=== PATIENT | female | born 1990 | race Caucasian/White ===

== ENCOUNTER 2017-01-20 11:46 | Inpatient (IN) | payer OTHER ==
[2017-01-20] MEDS ORDERED: morphine CARPU-JECT 4 MG/1 ML DISP.SYRIN IVPUSH ONE (12:47)
[2017-01-20] MEDS ORDERED: SODIUM CHLORIDE 1,000 ML IV STA (12:47)
[2017-01-20] MEDS ORDERED: ONDANSETRON 4 MG/2 ML VIAL IVPUSH ONE (12:47)
[2017-01-20] MEDS ORDERED: ONDANSETRON 4 MG/2 ML VIAL ONE (12:52)
[2017-01-20] MEDS ORDERED: morphine CARPU-JECT 4 MG/1 ML DISP.SYRIN ONE (12:52)
--- NOTE | 2017-01-20 12:53 | PDOC ---
Attending Attestation - Resident Resident Name: Casper Stewart - ED Attending Attestation I have performed the following: I have examined & evaluated the patient, The case was reviewed & discussed with the resident, I agree w/resident's findings & plan, Exceptions are as noted - HPI HPI: 01/20/17 12:48 this is a 26 yo F with a history of prior cholecystectomy Pt presents to the ER with a complaint of 2 days of severe RUQ pain and nausea Pt denies fevers or chills Pt states pain is sharp Located in the RUQ, radiating to the back Pt has been unable to eat as a result of her pain Pain is constant and severe Last meal: soup last night 9:30 pm Last BM: yesterday ("small amount") Passing flatus 01/20/17 12:50 01/20/17 12:53 01/20/17 12:54 - Physicial Exam PE: 01/20/17 12:52 On examination: Pt is bent over her bed, swaying in pain Pt has point tenderness of the ruq No CVA tenderness No lower abdominal pain or tenderness 01/20/17 12:53 01/20/17 12:54 - Medical Decision Making 01/20/17 12:55 Will do labs will do US Will do CT Will give IVF Will give Zofran and Morphine for pain Will re assess 01/20/17 14:24 Laboratory Tests 10/01/15 10/01/15 01/20/17 13:40 13:40 12:50 WBC 15.1 H 9.7 D Hgb 12.6 D 13.5 Hct 39.4 D 41.0 Plt Count 265 D 210 D Sodium Potassium Chloride Carbon Dioxide BUN 9 Creatinine 0.7 Random Glucose Total Bilirubin 0.5 AST 14 L ALT 21 Alkaline Phosphatase 74 Serum , Qual 01/20/17 01/20/17 12:50 12:50 WBC Hgb Hct Plt Count Sodium 138 Potassium 4.2 Chloride 103 Carbon Dioxide 30 BUN 6 L D Creatinine 0.8 Random Glucose 108 H Total Bilirubin 4.7 H D AST 497 H D ALT 862 H D Alkaline Phosphatase 163 H D Serum , Qual Negative 01/20/17 14:26 U/S: hepatomegaly CBD upper limit of normal Will contact surgery 01/20/17 15:31 Being sent to MRI Discharge Disposition - Diagnosis Abnormal LFTs - Discharge Dispostion Condition at time of disposition: Fair Last Admission D/C Date: 10/03/15 Admit: Yes - Referrals Referrals: Raymundo Ndiaye MD [Primary Care Provider] - - Patient Instructions - Post Discharge Activity
[2017-01-20 13:01] LABS: BASOPHIL 0.7 % (0-2.0); EOSINOPHIL 5.9 % (0-4.5); MCH 25.3 pg (25.7-33.7); MCHC 32.9 g/dl (32.0-36.0); MEAN CELL VOLUME 76.8 fl (80-96); MEAN PLT VOLUME 7.8 fl (7.5-11.1); NEUTROPHILS 64.1 % (42.8-82.8); PLATELET COUNT 210 K/MM3 (134-434); RDW 14.3 % (11.6-15.6); WHITE BLOOD COUNT 9.7 K/mm3 (4.0-10.0)
[2017-01-20 13:23] LABS: ALBUMIN 3.7 g/dl (3.4-5.0); AMYLASE 32 U/L (25-115); ANION GAP 5 (8-16); CALCIUM 8.9 mg/dL (8.5-10.1); CO2 30 mmol/L (21-32); CREATININE 0.8 mg/dL (0.55-1.02); GLUCOSE,RANDOM 108 mg/dL (74-106)
[2017-01-20 13:25] LABS: ALK PHOS 163 U/L (45-117); BILIRUBIN,TOTAL 4.7 mg/dL (0.2-1.0); TOT PROT 7.9 g/dl (6.4-8.2)
[2017-01-20 13:29] LABS: SGOT/AST 497 U/L (15-37); SGPT/ALT 862 U/L (12-78)
--- NOTE | 2017-01-20 13:45 | PDOC ---
History of Present Illness - General Chief Complaint: Pain Stated Complaint: ABD PAIN Time Seen by Provider: 01/20/17 12:06 - History of Present Illness Initial Comments: 01/20/17 13:39 Patient is a 26 year old female with a history of a cholecystectomy in 09/2015 who presents with a 3 day history of abdominal pain. Patient reports sudden onset of 8/10 sharp abdominal pain worse with inspiration in the epigastric region 2 days ago. She reports calling EMS and the pain resolved en route to the ED. Upon arrival to the ED, she opted to not be seen and went home without evaluation. Patient then reports an episode of emesis later that evening. She states that she was pain free 1 day ago and then experienced 8/10 pain right sided back pain that she describes as "moving" to the URQ when she moves prompting her visit to the ED today. She denies any fevers, chills, or changes in bowel movements at home. She denies dysuria or burning on urination. She states that she has an IUD implanted and has not experienced any changes in her menstruation. Past History - Past Medical History Allergies/Adverse Reactions: Allergies Allergy/AdvReac Type Severity Reaction Status Date / Time No Known Allergies Allergy Verified 01/20/17 11:50 Home Medications: Ambulatory Orders NK [No Known Home Medication] 01/20/17 Anemia: No Asthma: No Cancer: No Cardiac Disorders: No COPD: No Diabetes: No HTN: No Seizures: No Thyroid Disease: No Other medical history: obesity - Surgical History Cholecystectomy: Yes - Psycho/Social/Smoking Cessation Hx Suicidal Ideation: No Smoking History: Never smoked Have you smoked in the past 12 months: Yes Number of Cigarettes Smoked Daily: 0 Information on smoking cessation initiated: No Hx Alcohol Use: No Drug/Substance Use Hx: No Substance Use Type: None Hx Substance Use Treatment: No Review of Systems - Review of Systems Constitutional: No: Chills, Fever, Night Sweats, Weakness HEENTM: No: Nose Congestion, Throat Pain, Difficulty Swallowing Respiratory: No: Cough, Shortness of Breath, Wheezing Cardiac (ROS): No: Chest Pain, Palpitations, Chest Tightness ABD/GI: Yes: Constipated, Nausea, Poor Appetite, Vomiting. No: Diarrhea, Rectal Bleeding, Tarry Stools : No: Burning, Dysuria, Discharge, Hematuria Musculoskeletal: Yes: Back Pain Integumentary: No: Rash Neurological: No: Headache, Numbness, Weakness *Physical Exam - Vital Signs Last Vital Signs Temp Pulse Resp BP Pulse Ox 98.6 F 65 18 113/74 98 01/20/17 11:47 01/20/17 11:47 01/20/17 11:47 01/20/17 11:47 01/20/17 11:47 - Physical Exam General Appearance: Yes: Nourished, Moderate Distress HEENT: positive: Normal Voice. negative: Tonsillar Exudate, Nasal Congestion Respiratory/Chest: positive: Lungs Clear, Normal Breath Sounds. negative: Rales , Rhonchi, Wheezing Cardiovascular: positive: Regular Rhythm, Regular Rate. negative: Murmur, Gallop/S3, Gallop/S4 Gastrointestinal/Abdominal: positive: Normal Bowel Sounds, Other (Point tenderness to deep palpation in the URQ.). negative: Guarding, Rebound Musculoskeletal: negative: CVA Tenderness Extremity: positive: Normal Capillary Refill Integumentary: positive: Normal Color, Dry, Warm Neurologic: positive: Fully Oriented, Alert, Normal Mood/Affect ED Treatment Course - LABORATORY CBC & Chemistry Diagram: 01/20/17 12:50 01/20/17 12:50 - ADDITIONAL ORDERS Additional order review: Laboratory Results 01/20/17 01/20/17 12:50 12:50 Sodium 138 Potassium 4.2 Chloride 103 Carbon Dioxide 30 Anion Gap 5 L BUN 6 L D Creatinine 0.8 Creat Clearance w eGFR > 60 Random Glucose 108 H Calcium 8.9 Total Bilirubin 4.7 H D AST 497 H D ALT 862 H D Alkaline Phosphatase 163 H D Total Protein 7.9 Albumin 3.7 Total Amylase 32 D Lipase 109 Serum , Qual Negative 01/20/17 12:50 RBC 5.34 H MCV 76.8 L MCHC 32.9 RDW 14.3 MPV 7.8 Neutrophils % 64.1 D Lymphocytes % 22.5 D Monocytes % 6.8 D Eosinophils % 5.9 H D Basophils % 0.7 D - RADIOLOGY Radiograph Interpretation: 01/20/17 14:20 Abdominal US: Impression reported by Dr. Giles: Hepatomegaly with a slightly coarse echotexture that may be on the basis of mild fatty infiltration. Status post cholecystectomy. Top limits of normal common bile duct for a post cholecystectomy patient without evidence of intraluminal stones on the submitted images. Correlate clinically for further evaluation and follow-up. If clinically indicated an MRCP could be obtained. - Medications Given in the ED: ED Medications Discontinued Medications Generic Name Dose Route Start Last Admin Trade Name Edita PRN Reason Stop Dose Admin Morphine Sulfate 4 mg 01/20/17 12:47 01/20/17 12:59 Morphine Injection - IVPUSH 01/20/17 12:48 4 mg ONCE ONE Administration Ondansetron HCl 4 mg 01/20/17 12:47 01/20/17 12:59 Zofran Injection IVPUSH 01/20/17 12:48 4 mg ONCE ONE Administration Medical Decision Making - Medical Decision Making 01/20/17 13:53 Patient is a 26 year old female with a history of a cholecystectomy in 09/2015 who presents with a 2 day history of abdominal pain. Given the patient's physical exam and described pain of epigastric/RUQ sharp pain with radiation to the back, pancreatitis is on the differential as well as a hernia, or a retained gall stone, or liver pathology. We will obtain lipase and amylase to rule out pancreatitis as well as a BMP to evaluate for electrolyte abnormalities and liver enzymes for other pathology. We will obtain an US as well to look for any retained stones. We will obtain a urine test as well to rule out related pathology. We will treat her pain as appropriate. 01/20/17 14:40 Patient's labs are notable for an elevated biliruben to 4.7, elevated AST to 497 , elevated ALT 862 and an Alk Phos elevated to 163. Patient's US was read as hepatomegaly. Given the patient's abnormal lab and US findings, we consulted Dr. Liu with GI and Dr. Yeung with surgery for evaluation of the patient. Both recommended MRCP for further evaluation of the bile duct system given her elevated liver enzymes and hepatomegaly. Patient will be admitted for further work-up. *DC/Admit/Observation/Transfer Diagnosis at time of Disposition: Abnormal LFTs - Discharge Dispostion Condition at time of disposition: Fair - Referrals - Attestations Physician Attestion: 01/20/17 14:11 I, Dr. Casper Stewart, attest that this document has been prepared under my direction and personally reviewed by me in its entirety. I further attest, that it accurately reflects all work, treatment, procedures and medical decision -making performed by me.
--- NOTE | 2017-01-20 15:42 | CON.GI ---
Consult Consult Specialty:: GI Referred by:: Hospitalist Reason for Consultation:: abdominal pain - History of Present Illness Chief Complaint: abdominal pain History of Present Illness: 26 F with no significant PMH, PSH significant for Lap samina last year (Jayy Urias ) now with 3 days of progressive epigastric/RUQ pain and nausea which became 10/ 10 pain earlier prompting admission. On admit, t bili was 4.7 with increased transaminases. U/S with dilated CBD (1 cm) Just sent for MRI/MRCP - History Source History Provided By: Patient Limitations to Obtaining History: No Limitations - Past Medical History ...LMP: 10/01/15 Infectious Disease: Yes: Other (hx hsv antibody,denies ever having out break) - Alcohol/Substance Use Hx Alcohol Use: No History of Substance Use: reports: None - Smoking History Smoking history: Never smoked Have you smoked in the past 12 months: Yes Aproximately how many cigarettes per day: 0 - Social History History of Recent Travel: No Home Medications - Allergies Allergies/Adverse Reactions: Allergies Allergy/AdvReac Type Severity Reaction Status Date / Time No Known Allergies Allergy Verified 01/20/17 11:50 - Home Medications Home Medications: Ambulatory Orders NK [No Known Home Medication] 01/20/17 Physical Exam-GI Vital Signs: Vital Signs Temperature 98.6 F 01/20/17 11:47 Pulse Rate 65 01/20/17 11:47 Respiratory Rate 18 01/20/17 11:47 Blood Pressure 113/74 01/20/17 11:47 O2 Sat by Pulse Oximetry (%) 98 01/20/17 11:47 Constitutional: Yes: Well Nourished, Obese Neck: Yes: Supple Cardiovascular: Yes: Regular Rate and Rhythm Respiratory: Yes: CTA Bilaterally Gastrointestinal Inspection: Yes: WNL ...Auscultate: Yes: Normoactive Bowel Sounds ...Palpate: Yes: Soft. No: Tenderness Labs: CBC, BMP 01/20/17 12:50 01/20/17 12:50 Hepatic Panel Total Bilirubin 4.7 mg/dL (0.2-1.0) H D 01/20/17 12:50 Direct Bilirubin 3.5 mg/dL (0.0-0.2) H 01/20/17 12:50 AST 497 U/L (15-37) H D 01/20/17 12:50 ALT 862 U/L (12-78) H D 01/20/17 12:50 Alkaline Phosphatase 163 U/L (45-117) H D 01/20/17 12:50 Albumin 3.7 g/dl (3.4-5.0) 01/20/17 12:50 Imaging - Results Ultrasound: Report Reviewed Assessment/Plan 26 F s/p samina last year now back with possible CBD obstruction secondary to retained stone. Currently less pain. Rec: MRCP (currently being done) Further mgmt pending results Surgery has been notified May need ERCP unless stone has passed. IVF, IV AbRx
[2017-01-20 15:46] LABS: BILIRUBIN,DIRECT 3.5 mg/dL (0.0-0.2)
[2017-01-20 16:18] LABS: INR 1.12 (0.82-1.09); PROTHROMBIN TIME (PATIENT) 12.3 SEC (9.98-11.88)
[2017-01-20 17:01] VITALS: BMI 38.0
--- NOTE | 2017-01-20 17:22 | HP ---
CHIEF COMPLAINT: RUQ pain PCP: None currently HISTORY OF PRESENT ILLNESS: 26 year old F with PMH of cholecystectomy in 09/2015 presenting with RUQ pain. She states 2 days prior to admission she was at the park having a y[place]enia when she suddenly began feeling nauseous. She had some crackers and started to feel better so she had another drink after an hour. She began having severe pain in her epigastrium. [facility] by [facility]. By the time she arrived, her pain had subsided. Patient states she was fed and decided to leave because the wait time was [address] long[address] the [address] home, patient had an episode of emesis. The patient reports that 1 day prior to admission she was asymptomatic. This morning around 0530 patient woke up feeling fine. She had some apple juice and then around 0830 she began feeling pain in her epigastrium and RUQ. The pain has been intermittent and radiating to her back. She states the pain is alleviated by hot showers. Nothing makes the pain worse. She states it was an 8/10 upon arrival to the ED but has is now a 4/10 after she was given morphine. Patient endorses episodes of nausea and vomiting. Denies any fever or chills. Her last meal was 2130 last night and her last BM was yesterday. Patient also complaining of a vaginal yeast infection. Recent Travel: None PAST MEDICAL HISTORY: None PAST SURGICAL HISTORY: Cholecystectomy 09/2015 Social History: Smoking: None Alcohol: Socially (1-2 beers every few weeks) Drugs: None Family History: Mother-HTN Allergies: NKDA No Known Allergies Allergy (Verified 01/20/17 11:50) HOME MEDICATIONS: Home Medications Medication Instructions Recorded NK [No Known Home Medication] 01/20/17 REVIEW OF SYSTEMS CONSTITUTIONAL: Absent: fever, chills, diaphoresis, generalized weakness, malaise, weight change Present: Loss of Appetite HEENT: Absent: rhinorrhea, nasal congestion, throat pain, throat swelling, difficulty swallowing, mouth swelling, ear pain, eye pain, visual changes CARDIOVASCULAR: Absent: chest pain, syncope, palpitations, irregular heart rate, lightheadedness , peripheral edema RESPIRATORY: Absent: cough, shortness of breath, dyspnea with exertion, orthopnea, wheezing, stridor, hemoptysis GASTROINTESTINAL: Absent: abdominal distension, diarrhea, constipation, melena, hematochezia Present: abdominal pain, nausea, vomiting GENITOURINARY: Absent: dysuria, frequency, urgency, hesitancy, hematuria, flank pain, genital pain MUSCULOSKELETAL: Absent: myalgia, arthralgia, joint swelling, back pain, neck pain SKIN: Absent: rash, itching, pallor HEMATOLOGIC/IMMUNOLOGIC: Absent: easy bleeding, easy bruising, lymphadenopathy, frequent infections ENDOCRINE: Absent: unexplained weight gain, unexplained weight loss, heat intolerance, cold intolerance NEUROLOGIC: Absent: headache, focal weakness or paresthesias, dizziness, unsteady gait, seizure, mental status changes, bladder or bowel incontinence PSYCHIATRIC: Absent: anxiety, depression, suicidal or homicidal ideation, hallucinations. PHYSICAL EXAMINATION Vital Signs - 24 hr 01/20/17 01/20/17 16:08 16:48 Temperature 98.5 F 98.6 F Pulse Rate 90 Pulse Rate [ 72 Left Radial] Respiratory 18 18 Rate Blood Pressure 116/72 Blood Pressure 128/89 [Right Arm] O2 Sat by Pulse 98 98 Oximetry (%) GENERAL: Awake, alert, and fully oriented, in no acute distress. HEAD: Normal with no signs of trauma. EYES: extraocular movements intact, sclera anicteric, conjunctiva clear. EARS, NOSE, THROAT: oropharynx clear without exudates. Moist mucous membranes. NECK: Normal range of motion, supple without lymphadenopathy, JVD, or masses. LUNGS: Breath sounds equal, clear to auscultation bilaterally. Poor respiratory effort due to pain. No wheezes, and no crackles. No accessory muscle use. HEART: Regular rate and rhythm, normal S1 and S2 without murmur, rub or gallop. ABDOMEN: Soft, RUQ tenderness, not distended, normoactive bowel sounds, no guarding, no rebound, no masses. MUSCULOSKELETAL: Normal range of motion at all joints. No bony deformities or tenderness. No CVA tenderness. NEUROLOGICAL: Normal speech. Normal gait. PSYCHIATRIC: Cooperative. Good eye contact. Appropriate mood and affect. Laboratory Results - last 24 hr 01/20/17 01/20/17 01/20/17 12:50 12:50 12:50 WBC 9.7 D RBC 5.34 H Hgb 13.5 Hct 41.0 MCV 76.8 L MCHC 32.9 RDW 14.3 Plt Count 210 D MPV 7.8 Neutrophils % 64.1 D Lymphocytes % 22.5 D Monocytes % 6.8 D Eosinophils % 5.9 H D Basophils % 0.7 D INR Sodium 138 Potassium 4.2 Chloride 103 Carbon Dioxide 30 Anion Gap 5 L BUN 6 L D Creatinine 0.8 Creat Clearance w eGFR > 60 Random Glucose 108 H Calcium 8.9 Total Bilirubin 4.7 H D Direct Bilirubin 3.5 H AST 497 H D ALT 862 H D Alkaline Phosphatase 163 H D Total Protein 7.9 Albumin 3.7 Total Amylase 32 D Lipase 109 Serum , Qual Negative 01/20/17 16:00 WBC RBC Hgb Hct MCV MCHC RDW Plt Count MPV Neutrophils % Lymphocytes % Monocytes % Eosinophils % Basophils % INR 1.12 Sodium Potassium Chloride Carbon Dioxide Anion Gap BUN Creatinine Creat Clearance w eGFR Random Glucose Calcium Total Bilirubin Direct Bilirubin AST ALT Alkaline Phosphatase Total Protein Albumin Total Amylase Lipase Serum , Qual Imaging: U/S- hepatomegaly with a CBD diameter of 1 cm MRCP report pending ASSESSMENT/PLAN: 26 y.o. F with a PMH of cholecystectomy in 09/2015 presenting with a 2 day history of RUQ abdominal pain. 1. RUQ abdominal pain- biliary colic -cholecystectomy performed in 09/2015 -U/S shows hepatomegaly with a CBD diameter of 1 cm -MRCP results pending Plan: -Morphine 2 mg Q4H PRN for pain control -IVF NS @ 125 cc/hr -Unasyn 3g Q6H -F/u with GI -ERCP most likely tomorrow 2. Direct bilirubinemia -Likely due to obstructing stone in CBD -T bili- 4.7 -D bili- 3.5 Plan: -ERCP most likely tomorrow 3. Transaminitis -ALT-862 -AST-497 -Alk Phos- 163 -Likely due to obstructing stone in CBD Plan: -F/u with GI regarding ERCP 4. Vaginal Candidiasis Plan: -1 dose of fluconazole 150 mg PO was given 5. FEN/GI -Currently waiting on time for ERCP Plan: -Clear liquid diet currently -NPO after midnight 6. PPX Plan: Heparin 5000 units Q8H Visit type - Emergency Visit Emergency Visit: Yes ED Registration Date: 01/20/17 Care time: The patient presented to the Emergency Department on the above date and was hospitalized for further evaluation of their emergent condition. - New Patient This patient is new to me today: Yes Date on this admission: 01/20/17 - Critical Care Critical Care patient: No
--- NOTE | 2017-01-20 17:58 | PN ---
Teaching Attending Note Name of Resident: Jethro Vela ATTENDING PHYSICIAN STATEMENT I saw and evaluated the patient. I reviewed the resident's note and discussed the case with the resident. I agree with the resident's findings and plan as documented. SUBJECTIVE:26yo F c/o RUQ pain x3days. assoc with vomiting which prompted her to the ER. went to [facility] on thursday with this same pain but improved by arrival to the ER and there was a long wait so left prior to being evaluated. denies CP, SOB, fever, chills, C/D s/p laprascopic cholecystectomy on 10/03/15 without complication. OBJECTIVE: Last Vital Signs Temp Pulse Resp BP Pulse Ox 98.6 F 90 18 116/72 98 01/20/17 16:48 01/20/17 16:48 01/20/17 16:48 01/20/17 16:48 01/20/17 16:55 General NAD CV S1 S2 RRR no murmur/riub/gallop Lungs CTA B/L no wheezing/rales/rhonchi Abdomen soft +RUQ tenderness +juarez sign, obese Extremities no pedal edema ASSESSMENT AND PLAN: 26yo F with pMH acute cholecysitits s/p laprascopic cholecystectomy presented with RUQ pain and vomiting 1. Acute biliary colic- medicine admission. concern for cholodocholithasis vs acute cholangitis vs sphincter of oddi dysfucntion. slightly dilated CBD on u/s however pt is s/p cholecystectomy. MRCP done and awaiting results. will likely require ERCP for stone removal if + vs sphincterotomy. start Unasyn 3g, IVF, NPO. antiemetic and pain control. will trend transaminitis
[2017-01-20] MEDS ORDERED: FLUCONAZOLE 50 MG TABLET PO ONE (18:27)
[2017-01-20] MEDS: morphine CARPU-JECT 2 MG/1 ML DISP.SYRIN IVPUSH PRN ×2 (18:45→22:34)
--- NOTE | 2017-01-20 18:59 | HP ---
Admitting History and Physical - Admission Chief Complaint: ABD pain History of Present Illness: 26F with no PMH s/p cholecystectomy presents to the ED with 3 day history of ABD pain and one episode of vomiting. Found to have elevated LFTs and bilirubin. 3mm obstructing CBD stone - Past Medical History ...LMP: 01/06/17 ...: No Heme/Onc: Yes: Sickle Cell Trait Infectious Disease: Yes: Other (hx hsv antibody,denies ever having out break) Additional Past Medical History: no PMH - Past Surgical History Past Surgical History: Yes: Cholecystectomy - Smoking History Smoking history: Never smoked Have you smoked in the past 12 months: Yes Aproximately how many cigarettes per day: 0 - Alcohol/Substance Use Hx Alcohol Use: No History of Substance Use: reports: None - Social History History of Recent Travel: No Home Medications - Allergies Allergies/Adverse Reactions: Allergies Allergy/AdvReac Type Severity Reaction Status Date / Time No Known Allergies Allergy Verified 01/20/17 11:50 - Home Medications Home Medications: Ambulatory Orders NK [No Known Home Medication] 01/20/17 Physical Examination Vital Signs: Vital Signs Temperature 98.6 F 01/20/17 16:48 Pulse Rate 90 01/20/17 16:48 Respiratory Rate 18 01/20/17 16:48 Blood Pressure 116/72 01/20/17 16:48 O2 Sat by Pulse Oximetry (%) 98 01/20/17 16:55 Findings/Remarks: AAOx3 NAD RRR S1 S2 CTAB Soft TTP in RUQ Imaging - Results Ultrasound: Report Reviewed, Image Reviewed MRI: Report Reviewed, Image Reviewed Assessment/Plan 26F with no POMH s/p cheolcystectomy admitted for obstructing ABD stone and hyperbilirubinemia admit to med surg Sx Consult GI consult ERCP in AM NPO IVF Abx Discussed with attending. full H&P by medical team Visit type - Emergency Visit Emergency Visit: Yes ED Registration Date: 01/20/17 Care time: The patient presented to the Emergency Department on the above date and was hospitalized for further evaluation of their emergent condition. - New Patient This patient is new to me today: Yes Date on this admission: 01/20/17 - Critical Care Critical Care patient: No
[2017-01-20] MEDS ORDERED: FLUCONAZOLE 150 MG TABLET PO ONE (19:00)
[2017-01-20] MEDS: AMPICILLIN NA/SULBACTAM NA 3 GM in SODIUM CHLORIDE 100 ML IVPB SCH ×2 (20:51→21:29)
[2017-01-20] MEDS: SODIUM CHLORIDE 1,000 ML IV SCH (20:53)
--- NOTE | 2017-01-20 21:00 | CONSULT ---
Consult Consult Specialty:: General Surgery Referred by:: Jacki Quick Reason for Consultation:: h/o lap samina by Dr. Urias last year with RUQ pain and elevated LFTs - History of Present Illness Chief Complaint: RUQ pain History of Present Illness: 26yo generally healthy F s/p lap samina 10/[address] Urias began experiencing nausea Thursday after drinking part of a yessenia. She made herself throw up, but it didn't make her feel better. She had a beer, but then had epigastric pain , and went by ambulance to [facility], where she waited several hours to be seen, did not end up having any tests, but was feeling better by the time she got there. She had a sandwich and was discharged, but threw up on the way home. Yesterday, she did not have any pain, and had fish soup last night. Today , she had RUQ pain both in front and in back, which did not go away, but was severe, and she called her father to bring her to the ER. She has had normal BMs , but urine has been orange the last couple days. No f/c. In the ER, LFTs were significantly elevated with bilirubin of 4.7 and normal lipase. US showed CBD top normal s/p samina at 1cm but no clear evidence of stones. MRCP showed small stone in distal CBD with tapering to it from 1cm to 4mm. Surgery and GI were both consulted initially in ER. - History Source History Provided By: Patient Limitations to Obtaining History: No Limitations - Past Medical History Hepatobiliary: Yes: Cholecystitis (last year) ...LMP: 01/06/17 ...: No ...: 2 ...Para: 1 Infectious Disease: Yes: Other (hx hsv antibody,denies ever having out break) - Past Surgical History Past Surgical History: Yes: Cholecystectomy (laparoscopic 10/02) Additional Surgical History: termination of - Alcohol/Substance Use Hx Alcohol Use: Yes (social) History of Substance Use: reports: None - Smoking History Smoking history: Never smoked Have you smoked in the past 12 months: Yes Aproximately how many cigarettes per day: 0 - Social History History of Recent Travel: No Home Medications - Allergies Allergies/Adverse Reactions: Allergies Allergy/AdvReac Type Severity Reaction Status Date / Time No Known Allergies Allergy Verified 01/20/17 11:50 - Home Medications Home Medications: Ambulatory Orders NK [No Known Home Medication] 01/20/17 Family Disease History - Family Disease History Family Disease History: Diabetes: Grandparent, Heart Disease: Grandparent, Other : Father (HTN) Review of Systems - Review of Systems Constitutional: denies: Chills, Fever Eyes: denies: Blurred Vision, Double Vision HENT: denies: Difficult Swallowing, Nasal Congestion, Throat Pain Neck: denies: Swollen Glands, Tenderness Cardiovascular: denies: Chest Pain, Palpitations Respiratory: denies: Cough, SOB Gastrointestinal: reports: Abdominal Pain, Vomiting (self-induced x 1 - did not relieve discomfort). denies: Constipation, Diarrhea, Nausea Genitourinary: denies: Burning, Dysuria Musculoskeletal: reports: Joint Pain (right finger DIP joint, in last few weeks) . denies: Back Pain, Joint Swelling Integumentary: denies: Change in Color, Rash Neurological: denies: Dizziness, Headache Endocrine: denies: Unexplained Weight Gain, Unexplained Weight Loss Psychiatric: denies: Anxiety, Depression Physical Exam Vital Signs: Vital Signs Temperature 98.6 F 01/20/17 16:48 Pulse Rate 90 01/20/17 16:48 Respiratory Rate 18 01/20/17 16:48 Blood Pressure 116/72 01/20/17 16:48 O2 Sat by Pulse Oximetry (%) 97 01/20/17 20:29 Constitutional: Yes: Well Nourished, No Distress, Calm Eyes: Yes: Conjunctiva Clear. No: Sclera Icterus HENT: Yes: Atraumatic, Normocephalic Cardiovascular: Yes: Regular Rate and Rhythm. No: Murmur Respiratory: Yes: Regular, CTA Bilaterally Gastrointestinal: Yes: Normal Bowel Sounds, Soft, Abdomen, Obese. No: Distention, Tenderness (after pain meds) ...Rectal Exam: Yes: Deferred Renal/: No: CVA Tenderness - Left, CVA Tenderness - Right Musculoskeletal: No: Back Pain, Joint Swelling Extremities: No: Cool, Cyanosis Edema: No Peripheral Pulses WNL: Yes Integumentary: Yes: Tattoos (on back). No: Jaundice Neurological: Yes: Alert, Oriented Psychiatric: Yes: Alert, Oriented Labs: CBCD WBC 9.7 K/mm3 (4.0-10.0) D 01/20/17 12:50 RBC 5.34 M/mm3 (3.60-5.2) H 01/20/17 12:50 Hgb 13.5 GM/dL (10.7-15.3) 01/20/17 12:50 Hct 41.0 % (32.4-45.2) 01/20/17 12:50 MCV 76.8 fl (80-96) L 01/20/17 12:50 MCHC 32.9 g/dl (32.0-36.0) 01/20/17 12:50 RDW 14.3 % (11.6-15.6) 01/20/17 12:50 Plt Count 210 K/MM3 (134-434) D 01/20/17 12:50 MPV 7.8 fl (7.5-11.1) 01/20/17 12:50 CMP Sodium 138 mmol/L (136-145) 01/20/17 12:50 Potassium 4.2 mmol/L (3.5-5.1) 01/20/17 12:50 Chloride 103 mmol/L (98-107) 01/20/17 12:50 Carbon Dioxide 30 mmol/L (21-32) 01/20/17 12:50 Anion Gap 5 (8-16) L 01/20/17 12:50 BUN 6 mg/dL (7-18) L D 01/20/17 12:50 Creatinine 0.8 mg/dL (0.55-1.02) 01/20/17 12:50 Creat Clearance w eGFR > 60 (>60) 01/20/17 12:50 Calcium 8.9 mg/dL (8.5-10.1) 01/20/17 12:50 Total Bilirubin 4.7 mg/dL (0.2-1.0) H D 01/20/17 12:50 AST 497 U/L (15-37) H D 01/20/17 12:50 ALT 862 U/L (12-78) H D 01/20/17 12:50 Alkaline Phosphatase 163 U/L (45-117) H D 01/20/17 12:50 Total Protein 7.9 g/dl (6.4-8.2) 01/20/17 12:50 Albumin 3.7 g/dl (3.4-5.0) 01/20/17 12:50 Imaging - Results Ultrasound: Report Reviewed (1cm cbd with no obvious stone) MRI: Report Reviewed (very small filling defect/stone in distal cbd with tapering to this point), Image Reviewed Problem List - Problems (1) Choledocholithiasis with obstruction Assessment/Plan: GI consulted - plans for ERCP trend labs no acute general surgical issues will sign off - please call with any questions Thank you for the opportunity to participate in the care of this patient. Code(s): K80.51 - CALCULUS OF BILE DUCT W/O CHOLANGITIS OR CHOLECYST W OBST Qualifiers: Cholecystitis presence: without cholecystitis Qualified Code(s): K80.51 - Calculus of bile duct without cholangitis or cholecystitis with obstruction (2) Obesity Code(s): E66.9 - OBESITY, UNSPECIFIED Qualifiers: Obesity type: due to excess calories Obesity severity: unspecified obesity severity Qualified Code(s): E66.09 - Other obesity due to excess calories (3) S/P laparoscopic cholecystectomy Code(s): Z90.49 - ACQUIRED ABSENCE OF OTHER SPECIFIED PARTS OF DIGESTIVE TRACT
[2017-01-20] MEDS ORDERED: HEPARIN NA (PORCINE) 5,000 UNITS/ML 1ML VIAL SQ SCH (22:00)
[2017-01-20] MEDS ORDERED: morphine CARPU-JECT 2 MG/1 ML DISP.SYRIN IVPUSH ONE (23:35)
[2017-01-21] MEDS: AMPICILLIN NA/SULBACTAM NA 3 GM in SODIUM CHLORIDE 100 ML IVPB SCH ×4 (02:38→21:04)
[2017-01-21] MEDS: ONDANSETRON 4 MG/2 ML VIAL IVPB PRN (05:10)
[2017-01-21] MEDS: SODIUM CHLORIDE 1,000 ML IV SCH (06:04)
[2017-01-21] MEDS: morphine CARPU-JECT 2 MG/1 ML DISP.SYRIN IVPUSH PRN ×2 (06:05→14:00)
[2017-01-21 07:43] LABS: BASOPHIL 0.6 % (0-2.0); MCH 25.5 pg (25.7-33.7); MCHC 33.4 g/dl (32.0-36.0); MEAN CELL VOLUME 76.3 fl (80-96); MEAN PLT VOLUME 7.5 fl (7.5-11.1); NEUTROPHILS 53.9 % (42.8-82.8); PLATELET COUNT 184 K/MM3 (134-434); RDW 14.4 % (11.6-15.6); WHITE BLOOD COUNT 6.4 K/mm3 (4.0-10.0)
[2017-01-21 08:07] LABS: INR 1.12 (0.82-1.09); PROTHROMBIN TIME (PATIENT) 12.3 SEC (9.98-11.88)
[2017-01-21 08:48] LABS: ALBUMIN 3.1 g/dl (3.4-5.0); ANION GAP 6 (8-16); CALCIUM 8.2 mg/dL (8.5-10.1); CO2 30 mmol/L (21-32); GLUCOSE,RANDOM 102 mg/dL (74-106)
[2017-01-21 08:51] LABS: ALK PHOS 135 U/L (45-117); BILIRUBIN,TOTAL 4.7 mg/dL (0.2-1.0); CREATININE 0.7 mg/dL (0.55-1.02); SGOT/AST 244 U/L (15-37); TOT PROT 6.4 g/dl (6.4-8.2)
[2017-01-21 08:53] LABS: SGPT/ALT 584 U/L (12-78)
[2017-01-21] MEDS ORDERED: morphine CARPU-JECT 2 MG/1 ML DISP.SYRIN IVPUSH ONE (14:31)
--- NOTE | 2017-01-21 15:32 | PN ---
Teaching Attending Note Name of Resident: Jethro Vela ATTENDING PHYSICIAN STATEMENT I saw and evaluated the patient. I reviewed the resident's note and discussed the case with the resident. I agree with the resident's findings and plan as documented. SUBJECTIVE:pain has improved and controlled on medication. denies CP, SOB,fever , chills, N/V/C/D OBJECTIVE: Last Vital Signs Temp Pulse Resp BP Pulse Ox 97.9 F 58 L 22 137/87 97 01/21/17 14:04 01/21/17 14:04 01/21/17 14:04 01/21/17 14:04 01/21/17 09:00 General NAD Abdomen soft NT/ND no rebound or guarding, obese ASSESSMENT AND PLAN: 26yo F with pMH acute cholecysitits s/p laprascopic cholecystectomy presented with RUQ pain and vomiting 1. Acute biliary colic- clinically improved. +choledocholithasis. transaminitis stable. NPO for ERCP today. cont Unasyn day 2, IVF and pain control. GI on board.
--- NOTE | 2017-01-21 16:57 | PN ---
Physical Exam: SUBJECTIVE: Patient seen and examined Patient felt nauseous overnight. Given IV Zofran 8mg and felt better. No other complaints. Pain controlled with morphine. Denies chest pain, shortness of breath, vomiting, diarrhea, constipation. OBJECTIVE: Vital Signs Period Temp Pulse Resp BP Sys/Castro Pulse Ox Last 24 Hr 97.9 F-98.4 F 58-88 20-22 101-137/57-87 97-97 GENERAL: The patient is awake, alert, and fully oriented, in no acute distress. HEAD: Normal with no signs of trauma. EYES: extraocular movements intact, sclera anicteric, conjunctiva clear. No ptosis. ENT: oropharynx clear without exudates, moist mucous membranes. NECK: Trachea midline, full range of motion LUNGS: Breath sounds equal, clear to auscultation bilaterally, no wheezes, no crackles, no accessory muscle use. HEART: Regular rate and rhythm, S1, S2 without murmur, rub or gallop. ABDOMEN: Soft, nontender, nondistended, normoactive bowel sounds, no guarding, no rebound EXTREMITIES: warm, well-perfused, no edema. NEUROLOGICAL: Normal speech, gait not observed. PSYCH: Normal mood, normal affect. Laboratory Results - last 24 hr 01/20/17 01/21/17 01/21/17 20:00 06:33 06:33 WBC 6.4 D RBC 4.72 Hgb 12.0 D Hct 36.0 MCV 76.3 L MCHC 33.4 RDW 14.4 Plt Count 184 MPV 7.5 Neutrophils % 53.9 Lymphocytes % 29.2 D Monocytes % 9.3 Eosinophils % 7.0 H Basophils % 0.6 INR 1.12 Sodium Potassium Chloride Carbon Dioxide Anion Gap BUN Creatinine Creat Clearance w eGFR Random Glucose Calcium Total Bilirubin AST ALT Alkaline Phosphatase Total Protein Albumin Blood Type O POSITIVE Antibody Screen Negative 01/21/17 08:26 WBC RBC Hgb Hct MCV MCHC RDW Plt Count MPV Neutrophils % Lymphocytes % Monocytes % Eosinophils % Basophils % INR Sodium 140 Potassium 4.3 Chloride 104 Carbon Dioxide 30 Anion Gap 6 L BUN 4 L D Creatinine 0.7 Creat Clearance w eGFR > 60 Random Glucose 102 Calcium 8.2 L Total Bilirubin 4.7 H AST 244 H D ALT 584 H D Alkaline Phosphatase 135 H Total Protein 6.4 Albumin 3.1 L Blood Type Antibody Screen Active Medications Generic Name Dose Route Start Last Admin Trade Name Freq PRN Reason Stop Dose Admin Sodium Chloride 1,000 mls @ 125 mls/hr 01/20/17 21:00 01/21/17 06:04 Normal Saline - IV 125 mls/hr ASDIR RHIANNA Administration Ampicillin Sodium/Sulbactam 100 mls @ 200 mls/hr 01/20/17 18:45 01/21/17 14:59 Sodium 3 gm/ Sodium Chloride IVPB 200 mls/hr Q6H-IV RHIANNA Administration Morphine Sulfate 2 mg 01/20/17 18:21 01/21/17 14:00 Morphine Injection - IVPUSH 2 mg Q4H PRN Administration PAIN Ondansetron HCl 8 mg 01/20/17 18:27 01/21/17 05:10 Zofran Injection IVPB 8 mg Q6H PRN Administration NAUSEA ASSESSMENT/PLAN: 26 y.o. F with a PMH of cholecystectomy in 09/2015 presenting with a 2 day history of RUQ abdominal pain. 1. Choledocholithiasis -cholecystectomy performed in 09/2015 -U/S shows hepatomegaly with a CBD diameter of 1 cm -Day 2 of Unasyn Plan: -Morphine 2 mg Q4H PRN for pain control -IVF NS @ 125 cc/hr -Continue Unasyn 3g Q6H -ERCP planned for Thursday @ 230-3 by GI 2. Direct bilirubinemia -Likely due to obstructing stone in CBD -T bili- 4.7 Unchanged from yesterday Plan: -ERCP planned for Thursday 3. Transaminitis -ALT-584 -AST-244 -Alk Phos- 135 -Improved from 01/20 -Likely due to obstructing stone in CBD Plan: -ERCP on thursday 4. Vaginal Candidiasis Plan: -1 dose of fluconazole 150 mg PO was given on 01/20 5. FEN/GI -ERCP planned for Thursday @ 230-3 Plan: -Clear liquid diet currently 6. PPX Plan: SCD's b/l Visit type - Emergency Visit Emergency Visit: No - New Patient This patient is new to me today: No - Critical Care Critical Care patient: No
--- NOTE | 2017-01-21 18:21 | PN ---
GI Progress Note Subjective: Patient with nausea, abdominal pain requiring MSO4 MRCP official report reviewed-no stone in cbd Edema noted around distal CBD LFTs unchanged - Objective Vital Signs: Vital Signs Temperature 97.9 F 01/21/17 14:04 Pulse Rate 58 L 01/21/17 14:04 Respiratory Rate 22 01/21/17 14:04 Blood Pressure 137/87 01/21/17 14:04 O2 Sat by Pulse Oximetry (%) 97 01/21/17 09:00 Constitutional: Well Nourished Cardiovascular: Yes: Regular Rate and Rhythm Respiratory: Yes: CTA Bilaterally ...Auscultate: Yes: Normoactive Bowel Sounds ...Palpate: Yes: Soft, Tenderness ...Motor Strength: WNL Labs: CBC, BMP 01/21/17 06:33 01/21/17 08:26 INR, PTT INR 1.12 (0.82-1.09) 01/21/17 06:33 Hepatic Panel Total Bilirubin 4.7 mg/dL (0.2-1.0) H 01/21/17 08:26 Direct Bilirubin 3.5 mg/dL (0.0-0.2) H 01/20/17 12:50 AST 244 U/L (15-37) H D 01/21/17 08:26 ALT 584 U/L (12-78) H D 01/21/17 08:26 Alkaline Phosphatase 135 U/L (45-117) H 01/21/17 08:26 Albumin 3.1 g/dl (3.4-5.0) L 01/21/17 08:26 - ....Imaging MRI: Report Reviewed (No stone visualized in CBD) Assessment/Plan 26 F s/p samina last year now back with possible CBD obstruction secondary to retained stone. Currently with pain and nausea MRCP negatve for stone but film shows lucency in CBD that could be a stone. Clinically and biochemically has CBD obstruction Possible ERCP. Dr Valente aware and will see patient IVF, IV AbRx Continue morphine for pain control
--- NOTE | 2017-01-21 19:01 | PN ---
GI Progress Note Subjective: patient continue to have ruq pain every 4 hours one the effecto fo morphine wears odd. She is poorly ocntrolled with 2 mg of Morphine and was given 4mg today. She tolerated that dose and was up and about. The official MRCP reading was negative for CBD stone and edema i the distal CBD. LFTS remained to be elevated. I reviewed the MRCp possibly there there is a stone in proximal CBD. - Objective Vital Signs: Vital Signs Temperature 97.9 F 01/21/17 14:04 Pulse Rate 58 L 01/21/17 14:04 Respiratory Rate 22 01/21/17 14:04 Blood Pressure 137/87 01/21/17 14:04 O2 Sat by Pulse Oximetry (%) 97 01/21/17 09:00 Constitutional: Well Nourished Eyes: Yes: Conjunctiva Clear HENT: Yes: Atraumatic Neck: Yes: Supple Cardiovascular: Yes: Regular Rate and Rhythm Respiratory: Yes: CTA Bilaterally ...Auscultate: No: No Bowel Sounds ...Palpate: Yes: Firm/Rigid, Soft. No: Guarding, Hepatomegaly, Mass, Pulsatile Mass, Tenderness ...Percussion: Yes: Tympanitic Labs: CBC, BMP 01/21/17 06:33 01/21/17 08:26 INR, PTT INR 1.12 (0.82-1.09) 01/21/17 06:33 Problem List - Problems (1) Dilated cbd, acquired Assessment/Plan: suspect common bile duct stones vs Sphincter of oddi dyskenisia. IF if the LFTS are persistently abnormal will need ERCP. Risk of the procedure discussed with the patient including pancreatitis and bleeding. If she has underlying Sphincter of oddi dyskenisia risk of pancreatitis is increased. R> wild discuss MRCP with Dr Wright, if patients clinically worsens will perform emergency ERCP. The patient and her was made aware. Code(s): K83.8 - OTHER SPECIFIED DISEASES OF BILIARY TRACT
[2017-01-21] MEDS ORDERED: morphine CARPU-JECT 2 MG/1 ML DISP.SYRIN IVPUSH PRN (19:19)
[2017-01-21] MEDS ORDERED: PT OWN MED DRAWER 7, Y5N ONE (20:50)
[2017-01-21] MEDS ORDERED: ACETAMINOPHEN WITH CODEINE 300MG/30MG TABLET PO ONE (21:07)
[2017-01-22] MEDS ORDERED: PT OWN MED DRAWER 7, Y5N ONE ×4 (02:03→20:32)
[2017-01-22] MEDS: SODIUM CHLORIDE 1,000 ML IV SCH ×2 (02:07→20:50)
[2017-01-22] MEDS: AMPICILLIN NA/SULBACTAM NA 3 GM in SODIUM CHLORIDE 100 ML IVPB SCH ×4 (02:07→20:50)
[2017-01-22 07:17] LABS: ALK PHOS 131 U/L (45-117); ANION GAP 7 (8-16); BILIRUBIN,DIRECT 3.1 mg/dL (0.0-0.2); BILIRUBIN,TOTAL 4.2 mg/dL (0.2-1.0); CALCIUM 8.1 mg/dL (8.5-10.1); CO2 28 mmol/L (21-32); CREATININE 0.7 mg/dL (0.55-1.02); GLUCOSE,RANDOM 98 mg/dL (74-106); SGOT/AST 159 U/L (15-37); TOT PROT 6.4 g/dl (6.4-8.2)
[2017-01-22 07:20] LABS: SGPT/ALT 448 U/L (12-78)
--- NOTE | 2017-01-22 11:41 | PN ---
Physical Exam: SUBJECTIVE: Patient seen and examined Overnight patient had a headache. She was given PRN tylenol. Patient had no complaints this morning. Pain is well controlled. Had 1 BM yesterday which helped with her abdominal pain OBJECTIVE: Vital Signs Period Temp Pulse Resp BP Sys/Castro Pulse Ox Last 24 Hr 97.7 F-99.1 F 55-88 20-22 112-137/67-87 98 GENERAL: The patient is awake, alert, and fully oriented, in no acute distress. HEAD: Normal with no signs of trauma. EYES: Extraocular movements intact, sclera anicteric, conjunctiva clear. No ptosis. ENT: Oropharynx clear without exudates, moist mucous membranes. NECK: Trachea midline, full range of motion LUNGS: Breath sounds equal, clear to auscultation bilaterally, no wheezes, no crackles, no accessory muscle use. HEART: Regular rate and rhythm, S1, S2 without murmur, rub or gallop. ABDOMEN: Soft, nontender, nondistended, normoactive bowel sounds, no guarding, no rebound EXTREMITIES: warm, well-perfused, no edema. NEUROLOGICAL: Normal speech, gait not observed. PSYCH: Normal mood, normal affect. Laboratory Results - last 24 hr 01/22/17 05:50 Sodium 140 Potassium 4.1 Chloride 105 Carbon Dioxide 28 Anion Gap 7 L BUN 4 L Creatinine 0.7 Random Glucose 98 Calcium 8.1 L Total Bilirubin 4.2 H Direct Bilirubin 3.1 H AST 159 H D ALT 448 H D Alkaline Phosphatase 131 H Total Protein 6.4 Albumin 3.0 L Active Medications Generic Name Dose Route Start Last Admin Trade Name Freq PRN Reason Stop Dose Admin Sodium Chloride 1,000 mls @ 125 mls/hr 01/20/17 21:00 01/22/17 02:07 Normal Saline - IV 125 mls/hr ASDIR RHIANNA Administration Ampicillin Sodium/Sulbactam 100 mls @ 200 mls/hr 01/20/17 18:45 01/22/17 09:30 Sodium 3 gm/ Sodium Chloride IVPB 200 mls/hr Q6H-IV RHIANNA Administration Morphine Sulfate 4 mg 01/21/17 19:19 Morphine Injection - IVPUSH Q4H PRN PAIN Ondansetron HCl 8 mg 01/20/17 18:27 01/21/17 05:10 Zofran Injection IVPB 8 mg Q6H PRN Administration NAUSEA ASSESSMENT/PLAN: 26 y.o. F with a PMH of cholecystectomy in 09/2015 presenting with a 2 day history of RUQ abdominal pain. 1. Biliary Colic- Choledocholithiasis vs Biliary Sphincter of Oddi Dysfunction -cholecystectomy performed in 09/2015 -U/S shows hepatomegaly with a CBD diameter of 1 cm -MRCP indeterminate whether there is a stone -Day 3 of Unasyn -D bili- 3.1 -AST- 159 -ALT- 448 -ALP- 131 -Labs improving Plan: -Morphine 4 mg Q4H PRN for pain control -IVF NS @ 125 cc/hr -Continue Unasyn 3g Q6H Day 3 -ERCP planned for Thursday @ 230-3 by GI -Per GI, if symptoms worsen will perform an emergency ERCP (Dr. Baeza) 2. +C. Diff antigen -C. Diff toxin negative -Asymptomatic Plan: -Continue to monitor for any symptoms 3. Vaginal Candidiasis -Resolved Plan: -1 dose of fluconazole 150 mg PO was given on 01/20 4. FEN/GI -ERCP planned for Thursday @ 230-3 Plan: -Currently NPO due to possibility of emergent ERCP 5. PPX Plan: SCD's b/l Visit type - Emergency Visit Emergency Visit: No - New Patient This patient is new to me today: No - Critical Care Critical Care patient: No
--- NOTE | 2017-01-22 13:48 | PN ---
Teaching Attending Note Name of Resident: Jethro Vela ATTENDING PHYSICIAN STATEMENT I saw and evaluated the patient. I reviewed the resident's note and discussed the case with the resident. I agree with the resident's findings and plan as documented. SUBJECTIVE: Patient feels better. She denies abdominal pain, nausea. OBJECTIVE: Vital Signs Period Temp Pulse Resp BP Sys/Castro Pulse Ox Last 24 Hr 97.7 F-99.1 F 55-88 18-22 112-137/67-87 98-98 HEART: S1S2, RRR LUNGS: Clear ABDOMEN: Obese, soft, non-tender, non-distended, normal BS EXTREMITIES: No edema ASSESSMENT AND PLAN: This is a 26-year-old woman with a history of laprascopic cholecystectomy 2015 who presented to the ER with RUQ abdominal pain and vomiting. 1. RUQ abdominal pain, possible choledocholithiasis - Pain and nausea improved - Continue morphine as needed for pain, Zofran as needed for nausea - Continue Unasyn - Plan for ERCP tomorrow 2. Vaginal candidiasis - s/p Diflucan
[2017-01-22] MEDS: ONDANSETRON 4 MG/2 ML VIAL IVPB PRN (17:14)
--- NOTE | 2017-01-22 19:57 | PN ---
GI Progress Note Subjective: abdominal pain less, no nnausea no vomiting, medicated once today - Objective Vital Signs: Vital Signs Temperature 98.2 F 01/22/17 14:00 Pulse Rate 53 L 01/22/17 14:00 Respiratory Rate 20 01/22/17 14:00 Blood Pressure 133/84 01/22/17 10:00 O2 Sat by Pulse Oximetry (%) 98 01/22/17 09:00 Constitutional: Well Nourished Eyes: Yes: Conjunctiva Clear HENT: Yes: Atraumatic Neck: Yes: Trachea Midline Cardiovascular: Yes: Regular Rate and Rhythm Respiratory: Yes: CTA Bilaterally ...Palpate: Yes: Soft, Tenderness. No: Firm/Rigid, Guarding (-o pain medication ), Hepatomegaly, Mass, Pulsatile Mass, Splenomegaly Labs: CBC, BMP 01/21/17 06:33 01/22/17 05:50 INR, PTT INR 1.12 (0.82-1.09) 01/21/17 06:33 Problem List - Problems (1) Dilated cbd, acquired Assessment/Plan: suspect CBD stone R> for ERCp tomorrow Code(s): K83.8 - OTHER SPECIFIED DISEASES OF BILIARY TRACT
[2017-01-22] MEDS ORDERED: morphine CARPU-JECT 2 MG/1 ML DISP.SYRIN IVPUSH PRN (21:26)
[2017-01-23] MEDS ORDERED: PT OWN MED DRAWER 7, Y5N ONE ×2 (03:18→11:09)
[2017-01-23] MEDS: AMPICILLIN NA/SULBACTAM NA 3 GM in SODIUM CHLORIDE 100 ML IVPB SCH ×4 (03:20→21:10)
[2017-01-23] MEDS: SODIUM CHLORIDE 1,000 ML IV SCH ×2 (06:00→21:11)
[2017-01-23 07:21] LABS: ALBUMIN 2.8 g/dl (3.4-5.0); ANION GAP 6 (8-16); BILIRUBIN,DIRECT 3.3 mg/dL (0.0-0.2); CALCIUM 7.9 mg/dL (8.5-10.1); CO2 27 mmol/L (21-32); CREATININE 0.7 mg/dL (0.55-1.02); GLUCOSE,RANDOM 94 mg/dL (74-106); SGOT/AST 136 U/L (15-37); SGPT/ALT 367 U/L (12-78)
[2017-01-23 07:23] LABS: ALK PHOS 142 U/L (45-117); BILIRUBIN,TOTAL 4.2 mg/dL (0.2-1.0); TOT PROT 6.3 g/dl (6.4-8.2)
--- NOTE | 2017-01-23 13:17 | PN ---
Teaching Attending Note Name of Resident: Jethro Vela ATTENDING PHYSICIAN STATEMENT I saw and evaluated the patient. I reviewed the resident's note and discussed the case with the resident. I agree with the resident's findings and plan as documented. SUBJECTIVE: Patient has no complaints. OBJECTIVE: Vital Signs Period Temp Pulse Resp BP Sys/Castro Pulse Ox Last 24 Hr 97.7 F-98.6 F 53-61 16-20 112-134/58-80 97-98 HEART: S1S2, RRR LUNGS: Clear ABDOMEN: Obese, soft, non-tender, non-distended, normal BS EXTREMITIES: No edema ASSESSMENT AND PLAN: This is a 26-year-old woman with a history of laprascopic cholecystectomy 2015 who presented to the ER with RUQ abdominal pain and vomiting. 1. RUQ abdominal pain, possible choledocholithiasis - Continue Unasyn, morphine as needed for pain, Zofran as needed for nausea - ERCP today 2. Vaginal candidiasis - Improved with Diflucan
[2017-01-23 15:30] LABS: ANION GAP 6 (8-16); CALCIUM 8.4 mg/dL (8.5-10.1); CO2 28 mmol/L (21-32); CREATININE 0.8 mg/dL (0.55-1.02); GLUCOSE,RANDOM 89 mg/dL (74-106)
[2017-01-23] MEDS ORDERED: MIDAZOLAM HCL 2 MG/2 ML SINGLE DOSE VIAL ONE (16:24)
[2017-01-23] MEDS ORDERED: LIDOCAINE HCL/PF 2% SDV 5ML VIAL ONE (16:24)
[2017-01-23] MEDS ORDERED: ONDANSETRON 4 MG/2 ML VIAL ONE (16:24)
--- NOTE | 2017-01-23 16:26 | PN ---
Physical Exam: SUBJECTIVE: Patient seen and examined 26 y.o. F with a PMH of cholecystectomy in 09/2015 admitted for RUQ pain awaiting ERCP today. No acute events overnight. Pain is controlled. OBJECTIVE: Vital Signs Period Temp Pulse Resp BP Sys/Castro Pulse Ox Last 24 Hr 97.7 F-99.5 F 47-61 16-18 112-134/58-80 97-98 GENERAL: The patient is awake, alert, and fully oriented, in no acute distress. HEAD: Normal with no signs of trauma. EYES: Extraocular movements intact, sclera anicteric, conjunctiva clear. No ptosis. ENT: Oropharynx clear without exudates, moist mucous membranes. NECK: Trachea midline, full range of motion LUNGS: Breath sounds equal, clear to auscultation bilaterally, no wheezes, no crackles, no accessory muscle use. HEART: Regular rate and rhythm, S1, S2 without murmur, rub or gallop. ABDOMEN: Soft, nontender, nondistended, normoactive bowel sounds, no guarding, no rebound EXTREMITIES: No edema, warm, well-perfused NEUROLOGICAL: Normal speech, gait not observed. PSYCH: Normal mood, normal affect. Laboratory Results - last 24 hr 01/23/17 01/23/17 06:00 15:00 Sodium 138 138 Potassium 4.1 4.4 Chloride 105 104 Carbon Dioxide 27 28 Anion Gap 6 L 6 L BUN 4 L 4 L Creatinine 0.7 0.8 Random Glucose 94 89 Calcium 7.9 L 8.4 L Total Bilirubin 4.2 H Direct Bilirubin 3.3 H AST 136 H ALT 367 H Alkaline Phosphatase 142 H Total Protein 6.3 L Albumin 2.8 L Active Medications Generic Name Dose Route Start Last Admin Trade Name Freq PRN Reason Stop Dose Admin Sodium Chloride 1,000 mls @ 125 mls/hr 01/20/17 21:00 01/23/17 06:00 Normal Saline - IV 125 mls/hr ASDIR RHIANNA Administration Ampicillin Sodium/Sulbactam 100 mls @ 200 mls/hr 01/20/17 18:45 01/23/17 15:07 Sodium 3 gm/ Sodium Chloride IVPB 200 mls/hr Q6H-IV RHIANNA Administration Morphine Sulfate 2 mg 01/22/17 21:26 Morphine Injection - IVPUSH Q4H PRN PAIN Ondansetron HCl 8 mg 01/20/17 18:27 01/22/17 17:14 Zofran Injection IVPB 8 mg Q6H PRN Administration NAUSEA ASSESSMENT/PLAN: 26 y.o. F with a PMH of cholecystectomy in 09/2015 admitted with a 2 day history of RUQ abdominal pain awaiting ERCP 1. Biliary Colic- likely Choledocholithisis vs biliary sphincter of oddi dysfunction -cholecystectomy performed in 09/2015 -U/S shows hepatomegaly with a CBD diameter of 1 cm -Day 4 of Unasyn -ERCP today @ 3 -Labs improving Plan: -Continue Unasyn 3g Q6H -F/u with Dr. Baeza after ERCP regarding post/op instructions -Morphine 2 mg Q4H PRN for pain control -IVF NS @ 125 cc/hr 2. Direct bilirubinemia -Likely due to obstructing stone in CBD -T bili- 4.2 Unchanged from yesterday Plan: -ERCP today 3. Transaminitis -ALT-367 -AST-136 -Alk Phos- 142 -Improving -Likely due to obstructing stone in CBD vs. biliary sphincter of oddi dysfunction Plan: -ERCP on thursday 4. Vaginal Candidiasis -Resolved Plan: -1 dose of fluconazole 150 mg PO was given on 01/20 5. FEN/GI -ERCP planned for Thursday @ 230-3 Plan: -NPO 6. PPX Plan: SCD's b/l Visit type - Emergency Visit Emergency Visit: No - New Patient This patient is new to me today: No - Critical Care Critical Care patient: No
[2017-01-23] MEDS ORDERED: INDOMETHACIN 50 MG RECTAL SUPPOSITORY PR ONE ×2 (17:00)
[2017-01-23] MEDS ORDERED: IOHEXOL 300 MG/ML INFUS..BTL IV ONE (17:15)
[2017-01-23] MEDS ORDERED: PANTOPRAZOLE SODIUM 100 ML IVPB ONE ×2 (17:30→21:45)
[2017-01-23] MEDS ORDERED: ONDANSETRON 4 MG/2 ML VIAL IVPB PRN (19:38)
[2017-01-23] MEDS ORDERED: morphine CARPU-JECT 2 MG/1 ML DISP.SYRIN IVPUSH PRN (19:38)
[2017-01-23] MEDS: METOCLOPRAMIDE HCL INJECTION 10 MG/2 ML VIAL IVPB SCH (19:58)
[2017-01-24] MEDS: METOCLOPRAMIDE HCL INJECTION 10 MG/2 ML VIAL IVPB SCH ×2 (02:15→09:44)
[2017-01-24] MEDS: AMPICILLIN NA/SULBACTAM NA 3 GM in SODIUM CHLORIDE 100 ML IVPB SCH ×3 (04:04→14:03)
[2017-01-24 06:59] LABS: BASOPHIL 0.3 % (0-2.0); MCH 25.3 pg (25.7-33.7); MCHC 33.3 g/dl (32.0-36.0); MEAN CELL VOLUME 76.2 fl (80-96); MEAN PLT VOLUME 7.9 fl (7.5-11.1); NEUTROPHILS 60.5 % (42.8-82.8); PLATELET COUNT 217 K/MM3 (134-434); RDW 14.4 % (11.6-15.6); WHITE BLOOD COUNT 7.4 K/mm3 (4.0-10.0)
[2017-01-24 07:08] LABS: ALBUMIN 2.8 g/dl (3.4-5.0); ANION GAP 8 (8-16); BILIRUBIN,DIRECT 1.3 mg/dL (0.0-0.2); BILIRUBIN,TOTAL 2.3 mg/dL (0.2-1.0); CALCIUM 7.9 mg/dL (8.5-10.1); CO2 28 mmol/L (21-32); CREATININE 0.7 mg/dL (0.55-1.02); GLUCOSE,RANDOM 84 mg/dL (74-106); SGOT/AST 88 U/L (15-37); SGPT/ALT 289 U/L (12-78); TOT PROT 6.2 g/dl (6.4-8.2)
[2017-01-24 07:09] LABS: ALK PHOS 140 U/L (45-117)
[2017-01-24] MEDS ORDERED: PT OWN MED DRAWER 7, Y5N ONE ×2 (07:44→13:45)
[2017-01-24] MEDS: SODIUM CHLORIDE 1,000 ML IV SCH (08:02)
--- NOTE | 2017-01-24 14:21 | DS ---
Physical Exam: SUBJECTIVE: Patient seen and examined No acute events overnight. Pain is well controlled. Procedure went well. Full meal tolerated at lunch with no nausea, vomiting, or any GI symptoms. OBJECTIVE: Vital Signs Period Temp Pulse Resp BP Sys/Castro Pulse Ox Last 24 Hr 98.3 F-98.7 F 49-83 15-22 122-155/63-92 94-99 PHYSICAL EXAM GENERAL: The patient is awake, alert, and fully oriented, in no acute distress. HEAD: Normal with no signs of trauma. EYES: Extraocular movements intact, sclera anicteric, conjunctiva clear. LUNGS: Breath sounds equal, clear to auscultation bilaterally, no wheezes, no crackles, no accessory muscle use. HEART: Regular rate and rhythm, S1, S2 without murmur, rub or gallop. ABDOMEN: Soft, nontender, nondistended, normoactive bowel sounds, no guarding, no rebound, no hepatosplenomegaly, no masses. EXTREMITIES: 2+ pulses, warm, well-perfused, no edema. NEUROLOGICAL:Normal speech, gait not observed. PSYCH: Normal mood, normal affect. SKIN: Warm, dry, normal turgor, no rashes or lesions noted. LABS Laboratory Results - last 24 hr Laboratory Tests 01/20/17 01/21/17 01/22/17 12:50 08:26 05:50 WBC Hgb Hct Plt Count Sodium Potassium Chloride Carbon Dioxide Anion Gap BUN Creatinine Total Bilirubin 4.7 H D 4.7 H 4.2 H Direct Bilirubin 3.5 H 3.1 H AST 497 H D 244 H D 159 H D ALT 862 H D 584 H D 448 H D Alkaline Phosphatase 163 H D 135 H 131 H Lipase 109 01/23/17 01/24/17 01/24/17 06:00 05:45 05:45 WBC 7.4 Hgb 11.2 Hct 33.8 Plt Count 217 Sodium 140 Potassium 4.1 Chloride 104 Carbon Dioxide 28 Anion Gap 8 BUN 6 L D Creatinine 0.7 Total Bilirubin 4.2 H 2.3 H D Direct Bilirubin 3.3 H 1.3 H D AST 136 H 88 H D ALT 367 H 289 H D Alkaline Phosphatase 142 H 140 H Lipase HOSPITAL COURSE: Date of Admission:01/20/17 Date of Discharge: 01/24/17 26 yo F with a PMH of cholecystectomy in 09/2015 presented with RUQ admitted for choledhocolithiasis. U/S showed dilated CBD to 1 cm. An MRCP showed no evidence of a stone. ERCP was performed, stone was removed. Patient with transaminitis and direct bilirubinemia that improved over the hospital course and significantly improved s/p ERCP. Patient remained afebrile throughout the stay and will be d/c with no antibiotics. Minutes to complete discharge: 30 Discharge Summary Reason For Visit: ABNORMAL LIVER FUNCTION TESTS Current Active Problems Abnormal LFTs (Acute) Choledocholithiasis with obstruction (Acute) Dilated cbd, acquired (Acute) Obesity (Chronic) Condition: Improved - Instructions Diet, Activity, Other Instructions: Your symptoms that caused you to be in the hospital were due to a gallstone, which was removed during your procedure -Follow up with your primary care provider in 1 week (Dr. Ndiaye). -Follow up with your banquet server on call or Dr. Baeza in 1 week. If you have any chest pain, shortness of breath, or any new symptoms, please come back to the hospital immediately Referrals: Raymundo Ndiaye MD [Primary Care Provider] - Phil Baeza MD [Staff Physician] - Disposition: HOME - Home Medications Comprehensive Discharge Medication List: Ambulatory Orders NK [No Known Home Medication] 01/20/17 This patient is new to me today: No Emergency Visit: No Critical Care patient: No - Discharge Referral Referred to [facility] No
[2017-01-24 14:31] VITALS: BP 132/83; PULSE 61; TEMP 98.7
--- NOTE | 2017-01-24 15:03 | PN ---
Teaching Attending Note Name of Resident: Jethro Vela ATTENDING PHYSICIAN STATEMENT I saw and evaluated the patient. I reviewed the resident's note and discussed the case with the resident. I agree with the resident's findings and plan as documented. SUBJECTIVE: Patient has no complaints. She is tolerating diet. OBJECTIVE: Vital Signs Period Temp Pulse Resp BP Sys/Castro Pulse Ox Last 24 Hr 98.3 F-98.7 F 49-83 15-22 122-155/63-92 94-99 HEART: S1S2, RRR LUNGS: Clear ABDOMEN: Obese, soft, non-tender, non-distended, normal BS EXTREMITIES: No edema ASSESSMENT AND PLAN: This is a 26-year-old woman with a history of laprascopic cholecystectomy 2015 who presented to the ER with RUQ abdominal pain and vomiting. 1. Choledocholithiasis - s/p ERCP and stone extraction 01/23 2. Vaginal candidiasis - Improved with Diflucan 3. Ok for discharge home
== END 2017-01-24 15:52 | disposition home or self-care (01) ==
LOC: JER 11:46 → JERBED 15:22 → J6S 16:38
PROVIDERS: ADMIT Internal Medicine; ATTEND Internal Medicine
PROC: BF10YZZ Fluoroscopy of Bile Ducts using Other Contrast (ICD-10-PCS; 2017-01-23)
PROC: 0FC98ZZ Extirpation of Matter from Common Bile Duct, Via Natural or Artificial Opening Endoscopic (ICD-10-PCS; principal; 2017-01-23 15:00)
DX: K80.50 Calculus of bile duct without cholangitis or cholecystitis without obstruction (principal); E66.9 Obesity, unspecified; Z68.38 Body mass index [BMI] 38.0-38.9, adult; B37.3 Candidiasis of vulva and vagina; R74.0 Nonspecific elevation of levels of transaminase and lactic acid dehydrogenase [LDH]; K83.8 Other specified diseases of biliary tract; E80.7 Disorder of bilirubin metabolism, unspecified; K83.1 Obstruction of bile duct; R17 Unspecified jaundice
CPT/HCPCS: 36415; 74181-TC; 74330-TC; 76705-TC; 80048; 80053; 80076; 82150; 82248; 83690; 84703; 85025; 85610; 86850; 86900; 86901; 87324; 87449; 99283-25